=== PATIENT | female | born 1930 | race Asian ===

== ENCOUNTER → 2018-03-31 | Outpatient (CLI) | payer MEDICARE, MEDICAID | LOC: M.ULTRA 14:00 | DX: I83.91 Asymptomatic varicose veins of right lower extremity (principal); M79.89 Other specified soft tissue disorders ==

== ENCOUNTER → 2018-05-12 | Outpatient (CLI) | payer MEDICARE, MEDICAID | LOC: M.RAD 13:29 | DX: M81.0 Age-related osteoporosis without current pathological fracture (principal) ==

== ENCOUNTER → 2019-06-04 | Outpatient (CLI) | payer MEDICARE, MEDICAID | LOC: M.ULTRA 10:00 | DX: M79.89 Other specified soft tissue disorders (principal); M79.604 Pain in right leg ==